=== PATIENT | female | born 1980 ===

== ENCOUNTER 2018-12-22 09:05 | Outpatient (CLI) | payer OTHER | END 2018-12-22 09:07 | disposition home or self-care (01) | LOC: NUCLEAR 09:05 | DX: M25.50 Pain in unspecified joint (principal); M46.1 Sacroiliitis, not elsewhere classified | CPT/HCPCS: 78315; A9503 ==

== ENCOUNTER 2022-06-08 07:17 | Emergency (ER) | payer OTHER ==
[~2022-06-08] VITALS: Ht 165.1 cm; Wt 63.5 kg
[2022-06-08] MEDS ORDERED: TRAZODONE HCL100 MG PO (07:52)
[2022-06-08] MEDS ORDERED: ZOLOFT100 MG PO (07:52)
== END 2022-06-08 11:26 | disposition home or self-care (01) ==
LOC: ER 07:17
DX: B34.9 Viral infection, unspecified (principal); Z20.822 Contact with and (suspected) exposure to COVID-19; R11.0 Nausea